=== PATIENT | female | born 1940 | race American Indian/Alaskan Native ===

== ENCOUNTER 2018-08-26 15:32 | Emergency (ER) | payer MEDICARE ==
[2018-08-26 15:55] VITALS: BP 157/63
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
[2018-08-26] MEDS ORDERED: TORADOL IM ONE (17:13)
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
== END 2018-08-26 18:25 | disposition home or self-care (01) ==
LOC: ED 15:32
DX: M54.2 Cervicalgia (principal); M54.5 Low back pain; R51 Headache; I10 Essential (primary) hypertension; E11.9 Type 2 diabetes mellitus without complications; Z88.6 Allergy status to analgesic agent; V89.2XXA Person injured in unspecified motor-vehicle accident, traffic, initial encounter; Y93.89 Activity, other specified; Y99.8 Other external cause status; Y92.410 Unspecified street and highway as the place of occurrence of the external cause
CPT/HCPCS: 70450; 72100; 72125; 96372; 99284; J1885